=== PATIENT | male | born 1945 | race Caucasian/White ===

== ENCOUNTER 2020-07-28 16:46 | Emergency (ER) | payer MEDICARE, OTHER ==
[~2020-07-28 16:46] MED LIST: ASPIRIN325 MG PO; ATIVAN0.5 MG PO; B1 PO; FOLIC ACID1 MG PO; LIPITOR20 MG PO; MOBIC7.5 MG PO; NEURONTIN100 MG PO; NEXIUM40 MG PO; REMERON15 MG PO; XARELTO10 MG PO; ZOFRAN4 MG PO
[2020-07-28 17:57] LABS: BASOPHIL 0.5 % (0-2); EOSINOPHIL 0.5 % (0-7); HCT 41.6 % (42.0-52.0); HGB 14.5 g/dl (13.2-18.0); LYMPHOCYTE 22.7 % (15-48); MCH 34.2 pg (25.0-31.0); MCHC 34.9 g/dL (32.0-36.0); MCV 98.1 fL (78.0-100.0); MONOCYTE 8.7 % (0-12); MPV 11.4 fL (6.0-9.5); NEUTROPHIL 66.4 % (41-80); NRBC 0.3; PLT 300 K/uL (150-400); RBC 4.24 M/uL (4.70-6.00); RDW 13.4 % (11.5-14.0); WBC 14.4 K/uL (4.0-10.5)
[2020-07-28 18:05] LABS: ALBUMIN 2.3 g/dL (3.4-5.0); BILIRUBIN - TOTAL 1.2 mg/dL (0.2-1.0); BUN/CREAT RATIO (CALC) 21.1 RATIO; CREATININE 0.71 mg/dL (0.67-1.17); GLOBULIN (CALCULATION) 3.7 g/dL
[2020-07-28 18:14] LABS: BILIRUBIN 1+ mg/dL (NEGATIVE); BLOOD NEGATIVE Ery/uL (NEGATIVE); CLARITY CLEAR (CLEAR); COLOR YELLOW (YELLOW); GLUCOSE (U) NORMAL (NORMAL); LEUKOCYTES TRACE Leu/uL (NEGATIVE); NITRITE NEGATIVE (NEGATIVE); PROTEIN NEGATIVE (NEGATIVE); SPECIFIC GRAVITY <=1.005 (1.001-1.030); pH 6.5 (5.0-9.0)
[2020-07-28 18:24] LABS: BACTERIA TRACE
[2020-07-28 19:34] LABS: LACTIC ACID 6.9 mmol/L (0.4-1.9)
[2020-07-28 19:51] LABS: INR 1.39 (0.9-1.2); PROTHROMBIN TIME 16.2 SECONDS (11.4-13.6)
== END 2020-07-28 22:15 | disposition other institution (70) ==
LOC: FER 16:46
PROVIDERS: Emergency Medicine
DX: A41.9 Sepsis, unspecified organism (principal); R65.21 Severe sepsis with septic shock; K72.90 Hepatic failure, unspecified without coma; Z86.711 Personal history of pulmonary embolism; Z79.01 Long term (current) use of anticoagulants; Z79.899 Other long term (current) drug therapy
CPT/HCPCS: 36415; 71250; 80053; 81001; 82140; 83605; 84145; 84484; 85025; 85610; 85730; 87040; 87088; 93005; J2543; J7030